=== PATIENT | female | born 1955 | race Caucasian/White ===

== ENCOUNTER 2017-11-21 16:12 | Outpatient (CLI) | payer OTHER | END 2017-11-21 16:13 | disposition home or self-care (01) | LOC: BICRAD 16:12 | PROVIDERS: ATTEND Family Medicine | DX: R05 Cough (principal); R06.02 Shortness of breath | CPT/HCPCS: 71046 ==

== ENCOUNTER 2018-07-13 09:02 | Outpatient (CLI) | payer OTHER ==
[2018-07-13 09:54] LABS: Estimated GFR-MDRD - POC Greater than 90
[2018-07-13] MEDS ORDERED: ISOVUE-370 76%-LOCM 1 ML ONE (10:08)
--- NOTE | 2018-07-13 12:05 | CT ---
CT ANGIOGRAM CHEST WITH 3D RENDERING: History: I71.2, thoracic aneurysm, follow up evaluation. Comparison: 03-18-13 FINDINGS: No evidence for acute pulmonary or parenchymal process. There is again noted to be an approximately 4 .6 cm diameter aneurysmal dilatation of the ascending aorta. This is stable from the prior study. The remainder of the aorta is unremarkable. No evidence for aortic dissection. Central pulmonary arterie s appear to be free of thrombus. More peripheral pulmonary arteries are not adequately opacified. No pericardial effusion or pleural effusion. Visualized upper abdomen is unremarkable. IMPRESSION: Stable 4.6 cm diameter aneurysmal dilatation of the ascending aorta. POS: [facility]
== END 2018-07-13 09:03 | disposition home or self-care (01) ==
LOC: BICCT 09:02
PROVIDERS: ATTEND Family Medicine
DX: I71.2 Thoracic aortic aneurysm, without rupture (principal)
CPT/HCPCS: 71275; 82565

== ENCOUNTER 2018-07-17 09:09 | Outpatient (CLI) | payer OTHER ==
--- NOTE | 2018-07-17 11:46 | ULT ---
LIMITED RIGHT BREAST ULTRASOUND: Date: 07-17-18 Provided Clinical History: Right breast palpable abnormality. FINDINGS: Limited sonographic interrogation is performed of the right breast in the region of palpable concern. The sonographic appearance of the breast parenchyma in this region is normal. IMPRESSION: BIRADS category 2 - benign findings. No mammographic or sonographic abnormalities are evident in the region of palpable concern to explain the palpable finding. Negative imaging findings should not prec lude further evaluation of a clinically suspicious area. The patient is referred back to her clinicia n. POS: OFF
== END 2018-07-17 09:10 | disposition home or self-care (01) ==
LOC: BICCT 09:09
PROVIDERS: ATTEND Family Medicine
DX: N64.4 Mastodynia (principal); N64.59 Other signs and symptoms in breast; I71.2 Thoracic aortic aneurysm, without rupture
CPT/HCPCS: 77066; G0279

== ENCOUNTER 2022-06-22 13:25 | Outpatient (CLI) | payer MEDICARE, OTHER | END 2022-06-22 13:26 | disposition home or self-care (01) | LOC: BICMAMMO 13:25 | PROVIDERS: ATTEND Family Medicine | DX: N64.89 Other specified disorders of breast (principal) | CPT/HCPCS: 77065; G0279 ==